=== PATIENT | male | born 1955 | race Caucasian/White ===

== ENCOUNTER 2017-06-08 09:53 | Emergency (ER) | payer OTHER ==
[~2017-06-08] VITALS: Ht 172.7 cm; Wt 80.9 kg
[~2017-06-08 09:53] MED LIST: ASPI-628 PO
[2017-06-08 10:03] VITALS: BP 126/79; PULSE 60; RESP 15; O2SAT 100
--- NOTE | 2017-06-08 10:10 | ED.REPORT ---
HPI-Chest Pain 40 and Over Date of Service Jun 08, 2017 ED Provider: Dustin Alonso Patient is a 61 year old male with a hx of GERD who presents to the ED from urgent care complaining of intermittent lightheadedness onset yesterday. Yesterday while at the gym he began to feel woozy and today after drinking coffee he began to feel woozy again. He reports non-exertional chest tightness and dizziness with episodes. He denies chest pain, SOB, vision changes , difficulty speaking or swallowing, abdominal pain, nausea, vomiting, sour taste in mouth, or any other symptoms. He does not take any medications daily. His EKG and UC was normal. 6 weeks ago he changed his diet and stopped eating meat and dairy. He has also been working out more than normal. Nursing Notes Stated Complaint: CHEST PAIN Chief Complaint: Chest Pain Nursing Notes Reviewed: Yes Allergies: Coded Allergies: ibuprofen (Verified Adverse Reaction, Mild, HIVES WITH SOME BRANDS, ) Scheduled Aspirin (Aspir 81) 81 Mg Tablet.dr 81 MG PO DAILY General Time Seen by MD: 10:10 Chief Complaint Other (Lightheadedness ) Hx Obtained From: Patient Arrived By: Walk-in Sudden in Onset?: Yes Onset Occurred: Yesterday Symptom Duration: Intermittent Risk Factors )( CAD Risk Stratification No Diabetes mellitus, No Hyperlipidemia, No Hypertension, No Known CAD Risk factors reviewed )( TAD Risk Stratification No Aortic valve disease, No Hypertension, No Marfan's syndrome, No Risk factors reviewed )( PE Risk Stratification No Immobilization, No , No Previous DVT, No Previous PE Risk factors reviewed Past Medical History Past Medical History GERD- no meds Past Surgical History Denies Smoking History Unknown if Ever Smoker Social History Alcohol Use: 1-3 per day Other Social History: Local resident Ambulatory Status Independent Review of Systems Review of Systems Note: +chest tightness - sour taste, difficulty speaking or swallowing Respiratory: Denies: Shortness of breath Cardiovascular: Denies: Chest pain GI: Denies: Abdominal pain, Nausea, Vomiting Neurologic: Reports: Dizziness, Lightheaded, Denies: Vision change Complete sys rev & neg: except as marked. Physical Exam Initial Vital Signs Vital Signs (First) Date Time Temp Pulse Resp B/P Pulse Ox O2 Delivery O2 Flow Rate FiO2 06/08/17 10:03 36.4 60 15 126/79 100 06/08/17 12:06 Room Air Initial VS: Reviewed, Vital signs normal Head / Eyes: Atraumatic, Normocephalic Neck: Full range of motion Skin: Warm, Dry Neurologic: Alert, Oriented, Nonfocal Psychiatric: Mood/affect normal, Behavior normal, Normal thought content General/Constitutional: Awake, Alert, No acute distress Respiratory / Chest: Breath sounds NL, Breath sounds = bilat, No respiratory distress Cardiovascular: Heart rate NL Mild holosystolic murmur at L sternal border Abdomen: Atraumatic, Soft, Non-tender Interpretation & Diagnostics Lab Results Interpretation Result Diagram: 06/08/17 1035 06/08/17 1035 Test 06/08/17 10:35 06/08/17 11:44 06/08/17 12:50 White Blood Count 4.0th/mm3 (3.8-10.1) Red Blood Count 4.71mil/mm3 (4.40-5.80) Hemoglobin 13.6g/dL (13.8-17.2) Hematocrit 41.1% (41.0-50.0) Mean Corpuscular Volume 87.3fL (81-100) Mean Corpuscular Hemoglobin 28.9pg (27.0-35.0) Mean Corpuscular Hemoglobin Concent 33.1% (32.0-37.0) Red Cell Distribution Width 13.0% (12.3-15.4) Platelet Count 140bil/L (150-400) Neutrophils (%) (Auto) 56.7% (40-74) Lymphocytes (%) (Auto) 27.5% (14-46) Monocytes (%) (Auto) 13.0% (4-12) Eosinophils (%) (Auto) 2.0% (0-5) Basophils (%) (Auto) 0.5% (0-3) Sodium Level 139mEq/L (134-144) Potassium Level 4.2mEq/L (3.5-5.2) Chloride Level 101mEq/L (97-108) Carbon Dioxide Level 24mmol/L (18-29) Blood Urea Nitrogen 14mg/dL (8-27) Creatinine 0.94mg/dL (0.76-1.27) Estimat Glomerular Filtration Rate 87mL/min (>59) Glucose Level 96mg/dL (60-99) Calcium Level 8.7mg/dL (8.5-10.1) Magnesium Level 2.0mg/dL (1.6-2.6) Total Bilirubin 0.4mg/dL (0.0-1.2) Aspartate Amino Transf (AST/SGOT) 79U/L (0-50) Alanine Aminotransferase (ALT/SGPT) 43U/L (0-44) Alkaline Phosphatase 50U/L (25-160) Total Protein 6.6g/dL (6.4-8.4) Albumin 4.0g/dL (3.4-5.0) Hold Urine Received (Received) Troponin T < 0.010ug/L (0.0-0.011) ECG Interpretation ECG Interpretation: Sinus rate [address], T changes Time: 10:34 Interpreted by: ED physician X-Ray Chest Interpretation Chest Xray Interpretation: IMPRESSION: No radiographic evidence of acute cardiopulmonary pathology. Dictated by: Trevor Trevino M.D. on 06/08/2017 at 11:00 Approved by: Trevor Trevino M.D. on 06/08/2017 at 11:00 View: Portable, 1 view Interpretation / Wet Read by: Interpret - Radiologist Re-Eval/Medical Decision Med Decision/Clinical Course 61-year-old male with no past medical history presenting with vague episode earlier today where he felt something moving through his chest and lightheadedness. This was worse after drinking coffee. He does have a history of acid reflux. He has similar episode yesterday morning. This is resolved spontaneously. It resolved prior to arrival. He denies any chest pain, shortness breath or any other associated symptoms. His troponins are negative 2. His chest x-ray is clear. His labs are unremarkable. Unclear etiology though I do not see any emergent cause her any indication for hospitalization at this time. Recommend he take a PPI for his acid reflux. Return precautions given is advised to follow-up with primary doctor in 2-3 days. Time of Eval: 13:48 Re-Evaluation/Progress Note: Discussed lab and imaging results. Discussed plan for discharge. Patient understands and agrees with plan. All questions addressed at this time. Counseled Regarding: Diagnosis, Lab results, Need for follow-up, When/why to return to ED Discharge & Departure Primary Impression: Non-cardiac chest pain Disposition: Home Discharge Condition All VS Reviewed: Yes Condition: Stable Patient Instructions: Chest Pain (ED) Additional Instructions: Thank you for entrusting us with your care. We did not find a dangerous cause for your symptoms at this time. Your heart enzymes, EKG, chest xray and labs were reassuring. Follow up with your primary doctor within the next 2-3 days. I recommend you take an aspirin 81mg once daily. Return to the emergency department if you experience shortness of breath, chest pain, fevers/chills, nausea/vomiting, or any other symptoms. Referrals: Fer Connors MD (PCP) Scribe Attestation Portions of this note were transcribed by Griffin Caraballo. I, Dr. Alonso personally performed the history, physical exam and medical decision-making; I reviewed and confirmed the accuracy of the information in the transcribed note. Signed by: Bebeto Meeks, 06/08/17 at 1352 copies to: Fer Connors MD, Ben M MD Jun 08, 2017 10:10 GRIFFIN CARABALLO Jun 08, 2017 10:32
[2017-06-08] MEDS ORDERED: LidocaineVisc 2%:Antacid 1:1 10 mL Syringe PO ONE (10:20)
[2017-06-08 10:58] LABS: Mean Corpuscular Hemoglobin 28.9 pg (27.0-35.0); Mean Corpuscular Volume 87.3 fL (81-100); NEUTROPHILS % (AUTO) 56.7 % (40-74); Platelet Count 140 bil/L (150-400)
[2017-06-08 10:59] LABS: BASOPHILS % (AUTO) 0.5 % (0-3)
--- NOTE | 2017-06-08 11:02 | DRSVH ---
PROCEDURE: X-RAY CHEST ONE VIEW, PORTABLE ([id number]) INDICATIONS: chest pain TECHNIQUE: One view of the chest was acquired. COMPARISON: None. FINDINGS: Surgical changes and devices: None. Lungs and pleura: No pleural effusions or pneumothorax. Lungs are clear. Mediastinum: Mediastinal contours appear normal. Heart size is normal. Bones and chest wall: No suspicious bony lesions. Overlying soft tissues appear unremarkable. IMPRESSION: No radiographic evidence of acute cardiopulmonary pathology. Dictated by: Trevor Trevino M.D. on 06/08/2017 at 11:00 Approved by: Trevor Trevino M.D. on 06/08/2017 at 11:00
[2017-06-08 11:07] LABS: TROPONIN T 0.01 ug/L (0.0-0.011)
[2017-06-08 12:06] VITALS: BP 129/64; PULSE 68; RESP 16; O2SAT 98
[2017-06-08 13:45] VITALS: BP 114/70; PULSE 57; RESP 19; O2SAT 99
[2017-06-08 14:06] VITALS: BP 114/70; PULSE 57; RESP 19; O2SAT 99
== END 2017-06-08 14:06 | disposition home or self-care (01) ==
LOC: SED 09:53
DX: R07.89 Other chest pain (principal); Z87.19 Personal history of other diseases of the digestive system; Z79.82 Long term (current) use of aspirin; Z88.6 Allergy status to analgesic agent